=== PATIENT | male | born 1980 | race Caucasian/White ===

== ENCOUNTER 2025-06-11 04:26 | Emergency (ER) | payer BC ==
[~2025-06-11] VITALS: Ht 180.3 cm; Wt 90.9 kg
[2025-06-11] MEDS ORDERED: METH-350 (04:34)
[2025-06-11] MEDS ORDERED: TAMSULOSIN (04:34)
--- NOTE | 2025-06-11 04:39 | Physician Documentation ---
History of Present Illness General Chief Complaint: Jaw Pain Stated Complaint: JAW PAIN Time Seen by MD: 04:34 History of Present Illness Initial Comments This is a 45-year-old gentleman with no significant past medical history, denies history of diabetes or hypotension, denies family history of coronary artery disease, who presents for evaluation of what he describes as right-sided neck pain radiating into his right-sided chest that began less than 24 hours ago, at rest, without any obvious trigger provocation. He feels that there is some exertional component to it, it is accompanied by a sensation of tiredness and exhaustion and shortness of breath. The particular palliating factors. Did not attempt to treat with a any medications. This never happened to him in the past. Denies history of poor dentition, this does not feel like dental pain. Denies any earache. He does not smoke, he drinks socially, he does not do drugs Medication Reconciliation Allergies: Uncoded Allergies: BEES (Allergy, Mild, 06/11/25) COVID VACCINE J&J (Allergy, Unknown, 06/11/25) Miscellaneous Medications Methylphenidate HCl (Methylphenidate HCl), (Reported) [Tamsulosin], (Reported) Review of Systems ROS 10 point review of systems was performed and unless noted above in HPI is negative for acute process/complaint. Physical Exam Physical Exam Vital Signs: Heart Rate: 72, Respiratory Rate: 14, BP: 152/92, Pulse Oximetry: 99, Weight: 90.910 Physical Exam GENERAL: Awake, alert, oriented, GCS 15, no apparent distress, non-toxic appearing, answers questions, follows commands appropriately. Examined in triage HEENT: Atraumatic, normocephalic, pupils equal, extraocular muscles intact, sclerae anicteric, mucus membranes moist, oropharynx is clear, no stridor. NECK: supple, full active range of motion, trachea midline, no thyromegaly, no lymphadenopathy, no JVD. CARDIOVASCULAR: regular rate/rhythm, no murmurs/gallops/rubs, Pulses are 2+ in a ll extremities and symmetric. Capillary refill less than 2 seconds. PULMONARY: Nonlabored, good air movement ,no respiratory distress, speaking in full sentences, clear to auscultation bilaterally, no wheezing, no ronchi, no rales, no accessory muscle use. GASTROINTESTINAL: Soft, non-tender, non-distended, normal active bowel sounds, no organomegaly, no pulsatile masses, no CVA tenderness. NEUROLOGIC: Lucid with normal mental status. Normal facial symmetry. Moves all extremities symmetrically and with purpose. No truncal ataxia. Speech is fluid without evidence of dysarthria or aphasia, no focal deficits appreciated. MUSCULOSKELETAL: There is full range of motion of all extremities. There is no joint pain or joint swelling or joint erythema. There is no muscle pain or tenderness or swelling. EXTREMITIES: warm, well-perfused, no cyanosis, no clubbing, no edema, no acute deformities. Skin: warm, dry, no rashes or lesions, no jaundice, no petechiae orpurpura. No ecchymosis. PSYCHIATRIC: Normal affect, normal insight, normal concentration. Focused exam: [] Progress Results/Orders Reviewed/noted all lab results: Yes Results/Orders Completed Orders - OK MONZON MD Magnesium Sulf-Water 2g/50ml (Magnesium (06/11/25 06:20) Dexamethasone Inj (Decadron 10mg/Ml Inj) (06/11/25 06:18) Medications Received in ER Medications (Trade) Dose Ordered Sig/Alise Route PRN Reason Start Time Stop Time Status Last Admin Dose Admin (Motrin tablet) 800 mg ONCE ONCE PO 06/11/25 04:40 06/11/25 04:41 DC 06/11/25 04:55 800 MG (Flexeril tablet) 10 mg ONCE ONCE PO 06/11/25 04:40 06/11/25 04:41 DC 06/11/25 04:55 10 MG Sodium Chloride 1,000 ml @ 1,000 mls/hr ONCE ONCE IV 06/11/25 06:00 06/11/25 06:59 DC 06/11/25 06:36 1,000 MLS/HR (Compazine inj) 10 mg ONCE ONCE IV 06/11/25 06:00 06/11/25 06:18 DC 06/11/25 06:50 10 MG (Benadryl inj.) 50 mg ONCE ONCE IV 06/11/25 06:00 06/11/25 06:18 DC 06/11/25 06:37 50 MG (Toradol inj. 30mg/ml) 30 mg ONCE ONCE IV 06/11/25 06:00 11/23/25 06:18 DC 06/11/25 06:38 30 MG (Decadron 10mg/ ml inj) 10 mg ONCE STAT IV 06/11/25 05:56 06/11/25 06:18 DC 06/11/25 06:38 10 MG Magnesium Sulfate 50 ml @ 25 mls/hr ONCE ONCE IV 06/11/25 06:20 06/11/25 08:19 DC 06/11/25 06:50 25 MLS/HR Vital Signs 06/11/25 06/11/25 06/11/25 06/11/25 04:30 05:04 05:34 05:37 Pulse 72 74 Resp 14 13 12 12 B/P (MAP) 152/92 153/108 Pulse Ox 99 99 06/11/25 06/11/25 06/11/25 06:38 07:00 08:22 Pulse 85 89 Resp 12 18 16 B/P (MAP) 150/96 (114) 126/77 (93) Pulse Ox 99 98 O2 Flow Rate 0 0 Laboratory Tests Test 06/11/25 04:50 06/11/25 05:41 06/11/25 07:35 White Blood Count 6.5 Red Blood Count 4.66 L Hemoglobin 14.6 Hematocrit 43.0 Mean Corpuscular Volume 92.3 Mean Corpuscular Hemoglobin 31.3 H Mean Corpuscular Hemoglobin Concent 33.9 Red Cell Distribution Width 13.2 Platelet Count 211 Mean Platelet Volume 8.5 Neutrophils (%) (Auto) 61.2 Lymphocytes (%) (Auto) 29.1 Monocytes (%) (Auto) 8.4 Eosinophils (%) (Auto) 1.0 Basophils (%) (Auto) 0.3 Neutrophils # (Auto) 4.0 Lymphocytes # (Auto) 1.9 Monocytes # (Auto) 0.5 Eosinophils # (Auto) 0.1 Basophils # (Auto) 0.0 CBC Comment Erythrocyte Sedimentation Rate 2 D-Dimer < 0.19 D-Dimer Comment Sodium Level 140 Potassium Level 3.7 Chloride Level 106 Carbon Dioxide Level 30.8 Anion Gap 3 L Blood Urea Nitrogen 13 Creatinine 0.73 Estimated GFR/1.73 m2 > 90 BUN/Creatinine Ratio 17.8 Glucose Level 111 H Calcium Level 8.2 L Magnesium Level 1.9 Total Bilirubin 0.3 Aspartate Amino Transf (AST/SGOT) 26 Alanine Aminotransferase (ALT/SGPT) 36 Alkaline Phosphatase 138 H Troponin I High Sensitivity 4 6 C-Reactive Protein 0.07 Pro-B-Type Natriuretic Peptide < 30 Total Protein 6.6 Albumin 3.9 Globulin 2.7 Albumin/Globulin Ratio 1.4 Chemistry Comments Urine Specimen Description Cln catch midstream Urine Color Yellow Urine Clarity Clear Urine pH 6.0 Urine Specific [place] <=1.005 Urine Protein Negative Urine Glucose (UA) Negative Urine Ketones Negative Urine Occult Blood Negative Urine Nitrite Negative Urine Bilirubin Negative Urine Urobilinogen 0.2 Urine Leukocyte Esterase Negative Urine Culture Indicated Not ind Volume Urine Centrifuged 10 ml Urine Comment Urine Opiates Screen Negative Urine Methadone Screen Negative Urine Fentanyl Screen Negative Urine Barbiturates Screen Negative Urine Phencyclidine Screen Negative Urine Amphetamines Screen Negative Urine Benzodiazepines Screen Negative Urine Cocaine Screen Negative Urine Cannabinoids Screen Negative Drug Screen Comment Prothrombin Time 10.4 INR International Normalized Ratio 1.0 Activated Partial Thromboplast Time 25 Coagulation Comments Troponin I High Sens Percent Delta 50 Troponin I Hi Sens Absolute Change 2 Ethyl Alcohol Level < 10 EKG/XRAY/CT/US/VASC/MRI EKG : Additional Comment EKG was obtained and interpreted by myself showing sinus rhythm of 66, normal DC interval, borderline QRS of 108, no QT prolongation, normal axis, no STEMI. Heart Score: Heart Score Response (Comments) Value History Moderate Suspicious 1 Age 45-64 1 Risk Factors No known risk factors 0 Total 2 Medical Decision Making Additional information obtaine: N/A Findings Facility Status: ED Holds, [facility] process The plan was discussed with the patient, who demonstrates clear understanding of the plan and is in agreement with the plan unless otherwise noted in the chart. All questions have been answered, all concerns were addressed unless otherwise documented. I was available throughout their ED stay for frequent reassessment and questions. Differential Diagnoses (considered and possible or likely): [Differential diagnosis considered includes musculoskeletal pain of the neck/neck sprain, dental pain, acute otitis media, considerably radiation into the chest and exertional component I also have considered chest wall pain, pleurisy, pneumo ronni, pulmonary embolus, GERD, esophagitis, gastritis, anxiety, stress reaction, costochondritis, acute coronary syndrome, aortic dissection, pericarditis, myocarditis, or pneumothorax.] ??Differential Diagnoses (considered and unlikely, not requiring evaluation currently): [Aortic/great vessels dissection was considered but it is unlikely based on absence of ripping, tearing, migratory chest pain, absence of syncope or focal neurologic deficits, physical examination indicating equal and symmetric pulses.] MDM Data Please see HPI for the following: Independent Historians and external Records Review. Historian: [Patient] Independent Historians: ?[None] Medication Management: [Reviewed medication list] Social History and determinants: [Reviewed] Please see the body of the note for the following: Any independent interpretations of ECG, imaging studies. All vitals signs/haemodynamics, ordered tests were independently reviewed and interpreted by myself. Nursing triage complaint and vitals reviewed, additional nursing notes were reviewed as available and I agree unless otherwise noted or documented in contradiction in the chart Vital Signs: Independently reviewed Labs: Independently interpreted Imaging: Independently interpreted Old Medical Records: Independently reviewed, see HPI for relevant summary and information Pulse Oximetry: [99%] interpreted as [normal on room air] by me [Department Chairperson: [Regular Rate, Regular rhythm, no ectopy, NSR] reviewed and interpreted by me] Additionally notably showing: [Hemodynamics reviewed. The patient is not hypotensive, actually have slightly elevated blood pressure. There was no evidence of respiratory distress or hypoxia. No evidence of tachycardia. CBC is normal without evidence of leukocytosis, anemia, platelet dysfunction. ESR is normal. D-dimer is negative decreasing suspicion for PE as a cause of his presenting right-sided chest pain. Chemistry panel is unremarkable. Normal electrolytes, normal renal function. Alkaline phosphatase is elevated, nonspecific. Troponin is negative. CRP is normal. Pro BNP is not detectable.] Tests considered but not ordered include: [] Social Determinants of Health Impact: Patient was evaluated in [facility] [place] access to healthcare due to below par ratio of patient to medical providers. [] Comorbid Conditions Impacting Present Evaluation and Care/Treatment: [None reported by the patient, history of AFib with the father but no history of coronary artery disease] Management Discussions with other Healthcare Providers: [Tele neurology] Treatment and Disposition Medication Management (Given or considered): [After patient had developed subjective stroke-like symptoms, TNKase has been considered, however his objective NIH score is 0]. See EMR for details Consideration for Hospitalization/Escalation/Deescalation of Care: Admission for observation has been considered, [however the patient is able to tolerate p.o., their symptoms are controlled, they are able to rely on oral medications, and th eir chief complaint/diagnosis can be managed on outpatient basis.] ?ED Course:?[Date: Jun 11, 2025 Time: 05:13 since the arrival to the emergency department the patient has begun experiencing subjective weakness in the right side including his right face, right upper extremity, right lower extremity. He also reports that his right lower extremity is numb. It appears that he has been developing these symptoms only since he arrived to the emergency department. NEURO: M/S: Alert and oriented Face: Cranial nerves 2-12 appear to be intact with a preserved sensation and preserved patient's symmetry bilaterally, equal shrug, midline tongue, full extraocular range of motion, preserved hearing. He does however have a right beating profound horizontal nystagmus. Motor: Normal strength throughout all major muscle groups of bilateral upper and lower extremities, 5/5 Sensation: Normal sensation throughout all major dermatomes of bilateral upper and lower extremities Speech: Normal without evidence of aphasia or dysarthria Cerebellar: Normal coordination Normal gait Normal finger to nose DTRs: 2+ and symmetric upper/lower extremities Considering this development of subjective complaint, workup for stroke-like symptoms was initiated. Differential diagnosis was expanded to include TIA, CVA, partial seizure, complex migraine, hypoglycemia, electrolyte derangement, intracranial neoplasm. Date: Jun 11, 2025 Time: 05:35 on my independent interpretation of noncontrast head CT there is no acute intracranial bleed. Choroid c alcifications noted. On my independent interpretation of CTA head and neck, there is no occlusion or dissection of vessels of the neck, patent [place], no evidence of LV 0. ] ?Shared decision making:?[] Code status:?FULL Please see the full Electronic Medical Record for full details of nursing documentation, medications list, other records of complete past medical history and conditions, vital signs, laboratory studies, and any radiologic study interpretations by radiologists. Portions of this note were completed using [employer] dictation software and as a result there may exist minor errors in spell ing. I have reviewed elements of past family and social history and agree as included in note. Differential Diagnosis See body of main note for differential diagnosis Addendum Sign-out note: I received sign-out on this patient at shift change. Presents with right-sided chest pain and then right-sided weakness. Pending CTA to complete stroke workup and neurology recommendations. I personally interpreted the CT scan, and this shows no acute hemorrhage, no large vessel occlusion Stroke neurology evaluated the patient. They feel this is likely a complex migraine. They recommend treatment of migraine and if he improves then he can be discharged 9:30 a.m.: Re-evaluation: The patient is resting comfortably in bed. He denies any symptoms at this time, states everything has completely resolved. I discussed the results of his testing and he feels comfortable returning home. We discussed outpatient follow up and return precautions. The exact cause of his symptoms is unclear. It could be related to stress or possibly a complex migraine although he has no history of migraines. I favor this to be a stress reaction. Ok Monzon MD Departure Impression: Primary Impression: Neck pain on right side Additional Impression: Right-sided chest pain Referrals: NO PRIMARY CARE PROVIDER (PCP) Critical Care Note Critical Care Note CRITICAL CARE TIME: [35] minutes Treatments/Evaluations: Close monitoring and treatment of unstable vital signs, cardiorespiratory, and neurologic status, while maintaining tight balance of fluid, respiratory, and cardiac interventions. This time includes discussing the case with the patient and the patients family. This time does not include all procedures stated elsewhere in this record. This time also includes reviewing old records, labs and radiological studies. This time includes examining and re-examining the patient. Additionally, this time also includes arranging care with admitting and consulting physicians. Signature Scribe Signature: No scribe Attestation: Date: Jun 11, 2025 Time: 04:39 This note accurately reflects clinical decisions, work performed by myself, DO CLARA Porter NICHOLAS M DO Jun 11, 2025 04:39 OK MONZON MD Jun 11, 2025 09:38
--- NOTE | 2025-06-11 04:46 | ELECTROCARDIOGRAPH REPORT ---
[facility] Test Date: 2025-06-11 Test Time: 04:42:21 Pat Name: HESHAM WHITMAN Department: [facility]- Patient ID: [id number] Room: Gender: M Landscape Laborer: : 1980 Requested By: CATRACHO ELIZABETH Order Number: [id number] Reading MD: Dr. Keith Kraft Measurements Intervals [place] Rate: 66 P: 63 WI: 154 QRS: 74 QRSD: 108 T: 52 QT: 373 QTc: 391 Interpretive Statements Sinus rhythm Borderline low voltage, extremity leads ST elev, probable normal early repol pattern Electronically Signed On 06-12-2025 7:06:[address] Keith Kraft Please click the below link to view image of tracing.
[2025-06-11] MEDS: ibuprofen tablet 400 MG TABLET PO ONE (04:55)
[2025-06-11 05:03] LABS: MEAN PLATELET VOLUME 8.5 FL (7.4-10.4); RED CELL DISTRIBUTION WIDTH 13.2 % (11.5-14.5)
--- NOTE | 2025-06-11 05:10 | RADIOLOGY REPORT ---
CHEST RADIOGRAPH Indication: Chest pain Technique: Single frontal view of the chest was obtained Comparison: None IMPRESSION: Heart appears normal in size. The lungs appear clear without focal airspace opacity, effusion, or pneumothorax
[2025-06-11 05:16] LABS: CREATININE 0.73 MG/DL (0.60-1.10); TOTAL CARBON DIOXIDE 30.8 MMOL/L (24-32); eCRCL 133 ML/MIN; eGFR > 90 ML/MIN
[2025-06-11 05:23] LABS: PRO BRAIN NATRIURETIC PEPTIDE < 30 PG/ML (0-125)
[2025-06-11 05:37] VITALS: TEMP 98
--- NOTE | 2025-06-11 05:46 | RADIOLOGY REPORT ---
EXAM: CT CT STROKE ALERT INDICATION: Subjective right-sided weakness, right lower extremity numbness <1h TECHNIQUE: CT of the head without intravenous contrast. Radiation Dose Information: CT Dose: CTDI volume is 60.8 mGy. Dose-length product is 1269 mGy*cm The dose indicators for CT are the volume Computed Tomography (CT) Dose Index (CTDIvol) and the Dose Length Product (DLP), and are measured in units of mGy and mGy-cm, respectively. These indicators are not patient dose, but values generated from the CT scanner acquisition factors. The report includes radiation exposure data for exposures received during this examination. COMPARISON: None FINDINGS: There is no evidence of acute intracranial hemorrhage, extra-axial collection, mass effect, midline shift, herniation or hydrocephalus. The ventricles, sulci and cisterns are age appropriate. The carmona-white differentiation is intact. The visualized paranasal sinuses and mastoid air cells are clear. The surrounding soft tissues and osseous structures are unremarkable. IMPRESSION: 1. No acute intracranial abnormality. Critical Findings: Stroke Alert Findings discussed with CATRACHO ELIZABETH at 06/11/2025 7:45 AM IT ADMIN, who acknowledged receipt and understanding of the findings.
[2025-06-11 05:49] LABS: LEUKOCYTE ESTERASE ,URINE NEGATIVE (Neg); NITRITES, URINE NEGATIVE (Neg); OCCULT BLOOD,URINE NEGATIVE (Neg)
[2025-06-11 05:50] LABS: UA COLLECTION TYPE CLN CATCH MIDSTREAM
--- NOTE | 2025-06-11 05:57 | [facility] CONSULT REPORT ---
[facility] Procedure Note [facility] Procedure Note Consult [facility] Note # Demographics Consult Type: Acute Stroke Level 1 (0-4.5 hrs) Patient Location: Emergency Room First Name: HESHAM Last Name: ANTONETTE Date of : 1980 Age: 45 Gender: Male Facility: [facility] [place] Time of Initial Page (): 06/11/2025 05:36 First Contact with Site (): 06/11/2025 05:36 # HPI History: [id number] Patient is coming to the ER for right-sided chest pain. Patient mentioned that he started having pain in his right jaw, right side of neck, and right side of body. While in the ER, he started having subjective "feeling weird" in the right face, right arm and leg weakness along with right-sided numbness. He is also having a headache and the tongue feels numb. # Scores Time of exam and NIHSS (): 06/11/2025 05:50 Level of Consciousness 1a: [0] = Alert; keenly responsive LOC Questions 1b: [0] = Answers both questions correctly LOC Commands 1c: [0] = Performs both tasks correctly Best Gaze 2: [0] = Normal Visual 3: [0] = No visual loss Facial Palsy 4: [0] = Normal symmetrical movements Motor Arm Left 5a: [0] = No drift Motor Arm Right 5b: [0] = No drift Motor Leg Left 6a: [0] = No drift Motor Leg Right 6b: [0] = No drift Limb Ataxia 7: [0] = Absent Sensory 8: [1] = Nelf-[id number] sensory loss Best Language 9: [0] = No aphasia Dysarthria 10: [0] = Normal Extinction and Inattention 11: [0] = No abnormality NIHSS Total: 1 # Assessment Impression: - Migraine (Complex) Patient symptoms are consistent with complex migraine, if symptoms resolve after treatment, no further work up needed. If symptoms are persistent, will need MRI brain without contrast. # Plan Thrombolytic/Intervention: NOT IV Thrombolysis or IA Intervention candidate Thrombolytic Exclusion (< 3 hour window): - non-disabling deficit Intraarterial Exclusion: - no large vessel occlusion (LVO) Thrombolytic/Intraarterial Exclusion: - IV thrombolytic and IA intervention considered but not recommended as this patient's symptoms are not clinically consistent with an assumed diagnosis of stroke Labs: - comprehensive metabolic panel - CBC - ua - urine drug screen - ESR Medication: - migraine cocktail: Toradol 30 mg IV + Benadryl 25 mg IV + antiemetic IV Other: - If patient has any neurological deterioration please call me back immediately - neurology referral as outpatient - I have discussed my recommendations with the referring provider - may discharge home if complete symptom resolution and all urgent imaging negative for acute pathology Additional Recommendations: -Please start Magnesium 2 gm IV+ 500 mg Depakote IV + 500 ml normal saline -Please give 1 dose Dexamethasone 4 mg IV once # Demographics First Name: HESHAM Last Name: ANTONETTE Facility: [facility] [place] Neuro Consult Order placed for: Yes MISSY FRANCIS MD Jun 11, 2025 05:57
--- NOTE | 2025-06-11 05:57 | RADIOLOGY REPORT ---
INDICATION: Subjective right-sided weakness, right lower extremity numbness <1h COMPARISON: None TECHNIQUE: CTA imaging of the head and neck was performed following the uneventful administration of intravenous contrast. Sagittal and coronal reformatted images were obtained from the source data. All CT scans at this medical facility are performed using dose modulation techniques as appropriate to a performed exam including the following: Automated exposure control was utilized; adjustment of the MA and/or KV according to patient size; and use of iterative reconstruction technique. 3D MIP post-processing of the source data set was performed and reviewed by the radiologist. Radiation Dose Information: CT Dose: Dose-length product is 616 mGy*cm FINDINGS: There is a 3-vessel aortic arch which appears unremarkable. Common carotid, internal carotid, middle cerebral and anterior cerebral arteries appear widely patent. The basilar artery and vertebral arteries appear unremarkable with code dominance of the vertebral system. Thyroid gland, parapharyngeal soft tissues and paranasal sinuses appear unremarkable. Visualized portions of the upper chest appear unremarkable. IMPRESSION: 1. Unremarkable CT angiography of the head and neck. No acute findings.
[2025-06-11 06:01] LABS: URINE AMPHETAMINE SCREEN NEGATIVE (Neg); URINE BARBITUATE SCREEN NEGATIVE (Neg); URINE BENZODIAZEPINES SCREEN NEGATIVE (Neg); URINE CANNABINOID SCREEN NEGATIVE (Neg); URINE COCAINE SCREEN NEGATIVE (Neg); URINE METHADONE SCREEN NEGATIVE (Neg); URINE OPIATE SCREEN NEGATIVE (Neg); URINE PHENCYCLIDINE SCREEN NEGATIVE (Neg)
[2025-06-11] MEDS: normal saline 1000ml 1,000 ML IV ONE (06:36)
[2025-06-11] MEDS: ketorolac trometh 30MG/ML vial 30 MG/ML VIAL IV ONE (06:38)
[2025-06-11] MEDS: dexamethasone sod phosphate 10mg/ml inj IV STA ×2 (06:38)
[2025-06-11] MEDS: magnesium sulf-water 2g/50mL 50 ML IV ONE (06:50)
[2025-06-11 08:02] LABS: APTT 25 SECONDS (22-32); INR 1.0 INR
[2025-06-11 09:48] VITALS: BP 111/97; PULSE 76; RESP 14; O2SAT 98
== END 2025-06-11 09:50 | disposition home or self-care (01) ==
LOC: ER 04:27
DX: M54.2 Cervicalgia (principal); R07.9 Chest pain, unspecified; Z79.899 Other long term (current) drug therapy
CPT/HCPCS: 36415; 70450; 70496; 70498; 71045; 80053; 80305; 80320; 81003; 83735; 83880; 84484; 85025; 85379; 85610; 85651; 85730; 86140; 93005; 96365; 96375; 99285; J0780; J1100; J1200; J1885; J7030; Q9967